=== PATIENT | male | born 1945 | race Caucasian/White ===

== ENCOUNTER → 2020-01-26 13:55 | Outpatient (BNVA) | payer MEDICARE, SELFPAY | PROVIDERS: Family Provider Family Medicine; Visit Provider Nurse Practitioner Family | DX: Z01.818 Encounter for other preprocedural examination (principal) | CPT/HCPCS: 87635 ==

== ENCOUNTER 2021-12-01 09:51 | Outpatient (CLI) | payer MEDICARE, SELFPAY ==
--- NOTE | 2021-12-01 10:33 | USCV_ITS ---
Corwin Rothman Age: 76 Gender: M : 1945 Exam Date: 12/01/2021 11:04 Ordering Phys: Artie Dougherty MD Technologist: Zoltan Sullivan Exam Location: [facility] [place] Indication: Edema/ hypertension BP: 146 / 90 HR: 61 Rhythm: Sinus Technical Quality: Adequate MEASUREMENTS (Male / Female) Normal Values 2D ECHO LV Diastolic Diameter PLAX 5.3 cm 4.2 - 5.9 / 3.9 - 5.3 cm LV Systolic Diameter PLAX 3.3 cm IVS Diastolic Thickness 1.1 cm 0.6 - 1.0 / 0.6 - 0.9 cm IVS Systolic Thickness 1.4 cm LVPW Diastolic Thickness 1.2 cm 0.6 - 1.0 / 0.6 - 0.9 cm LVPW Systolic Thickness 1.6 cm LVOT Diameter 2.0 cm LV Ejection Fraction 2D Teich 66.5 % LV Ejection Fraction MOD 2C 58.4 % LV Ejection Fraction 2C AL 58.5 % LA Diameter 3.5 cm LA Width 3.9 cm LA Height 4.8 cm RA Width 3.4 cm RA Height 4.7 cm Aorta at Sinotubular Diameter 3.3 cm M-MODE Aortic Annulus Diameter 3.3 cm LA Ao Ratio MM 1.1 MV E Point Septal Separation 1.1 cm DOPPLER AV Peak Velocity 130.0 cm/s LVOT Peak Velocity 82.0 cm/s AV Area Cont Eq vti 2.0 cm squared AV Area Cont Eq pk 2.0 cm squared MV Area PHT 3.7 cm squared Mitral E to A Ratio 1.1 MV E' Velocity 34.5 cm/s Mitral E to MV E' Ratio 6.4 Mitral E to LV E' Lateral Ratio 6.1 Mitral E to LV E' Septal Ratio 6.8 TR Peak Velocity 236.5 cm/s TR Peak Gradient 22.4 mmHg TR Mean Velocity 204.0 cm/s TR Mean Gradient 16.8 mmHg TR Velocity Time Integral 73.9 cm Right Atrial Pressure 3.0 mmHg Pulmonary Artery Systolic Pressu 25.4 mmHg RV Acceleration Time 0.1 s RV Ejection Time 0.3 s RV AcT/ET 0.2 FINDINGS Left Ventricle Normal left ventricular size, systolic function and wall thickness, with no diagnostic regional wall motion abnormalities. Left ventricular ejection fraction is estimated at 65 %. Normal diastolic function. Right Ventricle Normal right ventricular size and systolic function. RVSP could not be calculated due to incomplete tricuspid regurgitation velocity profile. Right Atrium Normal right atrial size. Left Atrium Moderately increased left atrial size. Mitral Valve Mildly thickened mitral valve. No mitral valve stenosis. Trace mitral valve regurgitation. Aortic Valve Structurally normal trileaflet aortic valve. No aortic valve stenosis. Golp-vi-pfrpylcs aortic valve regurgitation. Tricuspid Valve Structurally normal tricuspid valve. No tricuspid valve stenosis. Trace tricuspid valve regurgitation. Pulmonic Valve Structurally normal pulmonic valve. No pulmonary valve stenosis. Trace pulmonary valve regurgitation. Pericardium No pericardial effusion. Aorta Normal size aortic root and proximal ascending aorta. CONCLUSIONS 1. Normal left ventricular size, systolic function and wall thickness, with no diagnostic regional wall motion abnormalities. Left ventricular ejection fraction is estimated at 65 %. Normal diastolic function. 2. Normal right ventricular size and systolic function. 3. Igqg-dh-jxvlannr aortic valve regurgitation. 4. Direct comparison to previous study dated 11/14/2018 not possible due to technically difficult study. Gabby Stovall MD (Electronically Signed) Final Date: 06 December 2021 12:48 S
== END 2021-12-01 09:52 | disposition home or self-care (01) ==
PROVIDERS: PCP Family Medicine; Visit Provider Family Medicine
DX: R60.9 Edema, unspecified (principal); I10 Essential (primary) hypertension; I35.1 Nonrheumatic aortic (valve) insufficiency
CPT/HCPCS: 93306

== ENCOUNTER → 2021-12-20 14:05 | Outpatient (BNVA) | payer MEDICARE, SELFPAY | PROVIDERS: PCP Family Medicine; Visit Provider Nurse Practitioner Family | DX: I48.11 Longstanding persistent atrial fibrillation (principal); I10 Essential (primary) hypertension | CPT/HCPCS: 99214 ==

== ENCOUNTER 2022-02-19 12:38 | Emergency (ER) | payer MEDICARE, SELFPAY ==
[2022-02-19 12:53] VITALS: BP 115/72; PULSE 71; RESP 16; TEMP 37; O2SAT 95; BMI 55.6
--- NOTE | 2022-02-19 13:55 | XRR_ITS ---
PROCEDURE INFORMATION: Exam: XR Left Hip Exam date and time: 02/19/2022 2:31 PM Age: 76 years old Clinical indication: Injury or trauma; Fall; Blunt trauma (contusions or hematomas); Left; Hip; Additional info: Fall with left hip pain TECHNIQUE: Imaging protocol: XR Left hip. Views: 2 or 3 views hip with pelvis when performed. COMPARISON: CT abdomen pelvis w con* [id number] 08/30/2019 2:55 PM FINDINGS: Bones/joints: No acute fracture. Soft tissues: Unremarkable. XR/XR hip LT 2-3V wo/w pel* [id number] IMPRESSION: No acute findings.
--- NOTE | 2022-02-19 14:22 | ED_ITS ---
HPI - Fall General: Chief Complaint: Fall Stated Complaint: fell on 02/17/injury to left leg Time Seen by Provider: 02/19/22 14:05 History of Present Illness: Patient is a 76-year-old male comes to the ED with left hip pain. Patient had a fall 2 days ago on February 17. He says he was walking down the steps on his front porch and they were wet sensitive been raining and he slipped. He fell down hitting his left hip and left forearm on the ground. He denies any head trauma or loss of consciousness after fall. He was able to get up on his own. He rates his pain a 7 out of 10 at its on his left hip. He has some bruising on his left hip along with bruising around his left forearm. He is not having any pain to forearm. Associated symptoms-after fall: Denies abdominal pain, chest pain, headache(s), hematuria or neck pain Review of Systems Const: Denies: fever(s), chills or fatigue Eyes: Denies: change in vision or eye discomfort ENMT: Denies: throat pain, odynophagia, nasal discharge or nasal congestion Card: Denies: chest pain, palpitations, edema, swelling of feet/ankles, dyspnea on exertion or orthopnea Resp: Denies: dyspnea, productive cough or non-productive cough GI: Denies: abdominal pain, nausea, vomiting, diarrhea, constipation or hematochezia : Denies: flank pain, difficulty urinating, dysuria or hematuria Musc: Reports: extremity pain (Left hip pain) and extremity swelling (Left hip pain and bruising); Denies: neck pain or back pain Skin/Breast: Denies: rash or new lesions Neuro: Denies: headache(s), numbness in extremities or weakness in extremities PFS ED PFSH: Medical History Atrial fibrillation Essential hypertension History of prostate cancer Hyperlipidemia Obesity Osteoarthritis Surgical History History of hand surgery S/P knee surgery S/P prostatectomy Family History Father Stroke Mother Heart failure Social History Smoking and tobacco status: never smoked Physical Exam Const: COMMON NORMALS: no acute distress, patient oriented x3 and alert GENERAL APPEARANCE: cooperative HENMT: COMMON NORMALS: normocephalic HEAD & SCALP: normocephalic MOUTH: Normal oral and palatal mucosa present THROAT: posterior oropharynx normal and uvula midline Eye: COMMON NORMALS: Equal, round and reactive pupils present and conjunctivae normal CONJUNCTIVA: Yes conjunctivae normal PUPIL: Yes Equal, round and reactive pupils present Neck/C-Spine: COMMON NORMALS: supple GENERAL: Yes normal visual inspection Resp: COMMON NORMALS: normal respiratory effort, No retractions, No use of accessory muscles and clear to auscultation bilaterally AUSCULTATION: clear to auscultation bilaterally Cardio: COMMON NORMALS: regular rate, regular rhythm, S1 normal heart sound present, S2 normal heart sound present, No gallops present (Cardio), No clicks present (Cardio), No murmurs present (Cardio) and Peripheral pulses 2+ throughout RATE: regular rate RHYTHM: regular rhythm HEART SOUNDS: S1 normal heart sound present and S2 normal heart sound present PERIPHERAL PULSES: Peripheral pulses 2+ throughout GI: COMMON NORMALS: Normal to inspection, nondistended, normoactive bowel sounds present, Soft to palpation, non-tender and no masses PALPATION: Yes Soft to palpation : COMMON NORMALS: Yes no CVA tenderness BLADDER/KIDNEY EXAM: Yes no CVA tenderness Back/Pelvis: COMMON NORMALS: no CVA tenderness Extremity: COMMON NORMALS: normal to inspection NARRATIVE EXTREMITY EXAM: Tenderness to palpation over greater trochanteric of left hip. Ecchymosis noted. Neurovascular tact distally. Neuro: COMMON NORMALS: patient oriented x3, CN's II-XII intact bilaterally, moves all extremities, no focal motor deficits and no sensory deficits noted SENSORIUM/ORIENTATION: Yes alert Skin: GENERAL SKIN EXAM: dry skin Course Vital Signs: Vital signs: Vital Signs Temperature 98.6 F 02/19/22 12:53 Pulse Rate 68 02/19/22 15:39 Respiratory Rate 18 02/19/22 15:39 Blood Pressure 135/84 02/19/22 15:39 Pulse Oximetry 92 02/19/22 15:39 MDM - Fall Medical Decision Making Patient is a 76-year-old male comes to the ED with left hip pain after fall. Patient slipped on the last step on his front porch 2 days ago and fell landing on left hip and left forearm area. Denies any head trauma, loss of consciousness, headache or any neurodeficits. He has mild pain in his left hip and is ambulatory. Vitals are stable. Patient does have a contusion and swelling of his left forearm and left hip with some tenderness to palpation over lateral aspect of the left hip. Neurovascular tact distally. X-ray of left forearm and of left hip showed no acute fractures or findings. Patient diagnosed with a contusion of left hip and left forearm. He was told to follow- up with his PCP in the next week for reevaluation. Return to ED precautions given. Patient understood and agreed with plan. Lab Data Radiology Impressions Hip/Pelvis X-Ray 02/19/22 13:55 IMPRESSION: No acute findings. Forearm X-Ray 02/19/22 14:25 IMPRESSION: No acute findings. Discharge Plan Discharge Patient Disposition: Home Clinical Impression: Fall as cause of accidental injury at home as place of occurrence Qualifiers: Encounter type: initial encounter Qualified Code(s): W19.XXXA - Unspecified fall, initial encounter Contusion of left hip Qualifiers: Encounter type: initial encounter Qualified Code(s): S70.02XA - Contusion of left hip, initial encounter Contusion of forearm, left Qualifiers: Encounter type: initial encounter Qualified Code(s): S50.12XA - Contusion of left forearm, initial encounter Condition: Stable Prescriptions: No Action metoprolol tartrate 50 mg tablet 25 mg PO BID 0RF aspirin 325 mg tablet 325 mg PO DAILY 0RF amiodarone 200 mg tablet 200 mg PO DAILY 0RF atorvastatin 20 mg tablet 20 mg PO DAILY 0RF digestive enzymes Capsule 1 cap PO DAILY 0RF Rx Instructions: administer with food; swallow whole; do not crush/chew/dissolve/break/cut calcium carbonate [Antacid Ultra Strength] 400 mg calcium (1,000 mg) tablet,chewable 1,000 mg PO DAILY 0RF glucosamine sulfate 2KCl [Glucosamine Relief] 1,000 mg tablet 1,000 mg PO BID 0RF Rx Instructions: administer with meals melatonin 10 mg capsule 10 mg PO DAILY 0RF Lactobacillus acidophilus 2 billion cell tablet 4,000 mmu cells PO DAILY 0RF All Day Allergy (cetirizine) 10 mg capsule PO PRN0RF pantoprazole 40 mg tablet,delayed release (DR/EC) 40 mg PO DAILY PRN0RF acetaminophen 500 mg capsule 500 mg PO Q6H PRN0RF furosemide 40 mg tablet 40 mg PO 0RF potassium chloride 10 mEq tablet extended release 10 meq PO 0RF Discharge Orders: Discharge ED (Routine); Ordered 02/19/22 Ordered By: Edward Pulliam Referrals: Artie Dougherty MD [Primary Care Provider] - Discharge Diet: Regular Discharge Activity: Increase activity as tolerated Patient Instructions: Contusion in Adults (ED) Activity Restrictions/Additional Instructions: Follow-up with medical provider as directed in the next 7 to 10 days for reevaluation. Continue taking home medications as previously prescribed. Return to the ER or your medical provider if condition worsens. Please read and understand discharge instructions. Thank you for choosing [facility] for your healthcare needs today. Bishop kenyon realize this is an emergency room and that we are providing you with a medical screening exam and this may not be complete and all inclusive of all the testing and or work up that you may need to determine your ailment or severity of your illness. It is very important that you follow up as instructed or that you return to the Emergency Department should you have concerns or if your condition changes or worsens in any way. Coding Level of Care Code ED Consumer Marketing Manager for Jack Latif
--- NOTE | 2022-02-19 14:25 | XRR_ITS ---
PROCEDURE INFORMATION: Exam: XR Left Forearm Exam date and time: 02/19/2022 2:31 PM Age: 76 years old Clinical indication: Injury or trauma; Fall; Blunt trauma (contusions or hematomas); Arm, lower; Left; Additional info: Fall injury-bruising around forearm TECHNIQUE: Imaging protocol: XR Left forearm. Views: 2 views. COMPARISON: No relevant prior studies available. FINDINGS: Bones/joints: Osseous structures are intact. Negative for fracture. Soft tissues: Normal. XR/XR forearm LT 2V [id number] IMPRESSION: No acute findings.
[2022-02-19 15:39] VITALS: BP 135/84; PULSE 68; RESP 18; O2SAT 92
== END 2022-02-19 15:42 | disposition home or self-care (01) ==
PROVIDERS: Emergency Provider Physician Assistant; PCP Family Medicine
DX: S70.02XA Contusion of left hip, initial encounter (principal); S50.12XA Contusion of left forearm, initial encounter; W10.8XXA Fall (on) (from) other stairs and steps, initial encounter
CPT/HCPCS: 73090; 73502; 99283

== ENCOUNTER → 2022-05-17 14:11 | Outpatient (BNVA) | payer MEDICARE, SELFPAY | PROVIDERS: PCP Family Medicine; Visit Provider Internal Medicine Cardiovascular Disease | DX: I48.11 Longstanding persistent atrial fibrillation (principal); I10 Essential (primary) hypertension; E78.5 Hyperlipidemia, unspecified; M19.90 Unspecified osteoarthritis, unspecified site; E66.9 Obesity, unspecified; Z68.41 Body mass index [BMI] 40.0-44.9, adult | CPT/HCPCS: 99214 ==

== ENCOUNTER 2022-07-23 08:57 | Emergency (ER) | payer MEDICARE, SELFPAY ==
[2022-07-23 09:21] VITALS: BP 145/74; PULSE 67; RESP 16; TEMP 36.8; O2SAT 96; BMI 44.1
--- NOTE | 2022-07-23 09:35 | XRR_ITS ---
PROCEDURE INFORMATION: Exam: XR Chest Exam date and time: 07/23/2022 9:50 AM Age: 77 years old Clinical indication: Cough with hemorrhage; Additional info: Hemoptysis TECHNIQUE: Imaging protocol: Radiologic exam of the chest. Views: 2 views. PA and Lateral COMPARISON: CR XR chest 2V* [id number] 11/13/2018 9:59 AM FINDINGS: Lungs: There are small lung volumes with minimal accentuation of the pulmonary vascularity. There are no confluent interstitial or airspace opacities. Pleural spaces: There are no pleural effusions or pneumothorax. Heart/Mediastinum: There is zqez-gz-szmddcoc enlargement of the cardiac silhouette on the exam.. The mediastinal contour is normal. The trachea is in the midline. Bones/joints: No acute abnormalities. Small right hemidiaphragmatic eventration is seen. XR/XR chest 2V* [id number] IMPRESSION: 1. Small lung volumes with minimal accentuation of the pulmonary vascularity. No confluent infiltrates in the lungs. 2. Ywab-zc-vagbhete enlargement of the cardiac silhouette.
--- NOTE | 2022-07-23 09:37 | ECG_ITS ---
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 Measurements Intervals [place] Rate: 63 P: 239 NE: 162 QRS: -48 QRSD: 114 T: 43 QT: 437 QTc: 449 Interpretive Statements ECTOPIC ATRIAL RHYTHM LEFT ANTERIOR FASCICULAR BLOCK [QRS AXIS <= -45, QR IN I, RS IN II] PROBABLE LATERAL MYOCARDIAL INFARCTION , PROBABLY OLD [35 ms Q WAVE IN I/aVL/V5/V6] INTERPRETATION BASED ON A DEFAULT AGE OF 40 YEARS Compared to ECG 11/14/2018 11:28:20 Ectopic atrial rhythm now present Left anterior fascicular block now present Myocardial infarct finding now present Atrial flutter no longer present ST (T wave) deviation no longer present Electronically Signed On 07-24-2022 10:13:22 CDT by Luciano Murry M.D. [email or web address]
--- NOTE | 2022-07-23 09:38 | ED_ITS ---
HPI - General Adult General: Chief complaint: General Medical Stated complaint: Spitting up blood Time Seen by Provider: 07/23/22 09:27 History of Present Illness: 77-year-old male presents with couple episodes of of spitting up blood. He said this, bloody sputum. He denies any shortness of breath, recent illness, nausea, vomiting, abdominal pain, chest pain. Patient reports that he has had a couple episodes since around 230 this morning. Patient with no other systemic complaints. Associated symptoms: Deny chest pain, dyspnea, headache(s), nausea, rash, palpitations or vomiting Review of Systems Const: Denies: fever(s), chills or body aches Eyes: Denies: change in vision or blurry vision Card: Denies: chest pain or palpitations Resp: Reports: hemoptysis; Denies: dyspnea or productive cough GI: Denies: abdominal pain, nausea or vomiting : Denies: flank pain, difficulty urinating or dysuria Musc: Reports: neck pain; Denies: extremity pain or extremity swelling Skin/Breast: Reports: pruritus; Denies: rash or erythema Neuro: Reports: dizziness; Denies: headache(s) Psych: Denies: anxiety or depression PFSH ED PFSH: Medical History (Updated 07/06/22 @ 11:24 by Artie Dougherty MD) Atrial fibrillation Essential hypertension History of prostate cancer Hyperlipidemia Obesity Osteoarthritis Osteoarthritis of left knee Surgical History History of hand surgery S/P knee surgery S/P prostatectomy Family History Father Stroke Mother Heart failure Social History Smoking and tobacco status: never smoked Physical Exam Const: COMMON NORMALS: no acute distress, patient oriented x3, no limitations and alert Chest: COMMONS NORMALS: normal inspection of the chest Resp: COMMON NORMALS: normal respiratory effort, No retractions, No use of accessory muscles and clear to auscultation bilaterally AUSCULTATION: clear to auscultation bilaterally Cardio: COMMON NORMALS: regular rate and regular rhythm RATE: regular rate RHYTHM: regular rhythm GI: COMMON NORMALS: Normal to inspection, nondistended, normoactive bowel sounds present, Soft to palpation and non-tender PALPATION: Yes Soft to palpation Extremity: COMMON NORMALS: normal to inspection, full ROM and capillary refill normal Neuro: COMMON NORMALS: patient oriented x3, CN's II-XII intact bilaterally, moves all extremities, no focal motor deficits and no sensory deficits noted SENSORIUM/ORIENTATION: Yes alert Psych: COMMON NORMALS: mental status grossly normal, cooperative, normal affect and speech normal SPEECH: Yes normal speech Skin: COMMON NORMALS: no rashes or lesions noted GENERAL SKIN EXAM: no rashes or lesions noted Course Vital Signs: Vital signs: Vital Signs Temperature 98.2 F 07/23/22 09:21 Pulse Rate 67 07/23/22 09:21 Respiratory Rate 16 07/23/22 09:21 Blood Pressure 145/74 07/23/22 09:21 Pulse Oximetry 96 07/23/22 09:21 Oxygen Delivery Me thod 07/23/22 09:21 MDM - General Adult Medical Decision Making Patient with no significant acute findings on x-ray, labs or physical exam. Patient had some sputum in the ER that was clear with no blood tinge or gross blood. Patient stable. I recommend he follow-up with his regular doctor on outpatient basis for further evaluation. Patient's discharged home. Lab Data : 07/23/22 09:50 07/23/22 09:50 Radiology Impressions Chest X-Ray 07/23/22 09:35 IMPRESSION: 1. Small lung volumes with minimal accentuation of the pulmonary vascularity. No confluent infiltrates in the lungs. 2. Hfjk-ku-slbwasxh enlargement of the cardiac silhouette. Laboratory Results WBC 5.0 10^3/uL (4.0-10.0) 07/23/22 09:50 RBC 4.88 10^6/uL (4.1-5.3) 07/23/22 09:50 Hgb 15.2 g/dL (11.7-16.6) 07/23/22 09:50 Hct 47.7 % (42.0-52.0) 07/23/22 09:50 MCV 97.7 fl (80-94) H 07/23/22 09:50 MCH 31.1 pg (28.0-34.0) 07/23/22 09:50 MCHC 31.9 g/dL (30.0-36.0) 07/23/22 09:50 RDW 13.2 % (12.1-15.1) 07/23/22 09:50 Plt Count 192 10^3/cmm (130-400) 07/23/22 09:50 MPV 9.5 fL (7.4-10.4) 07/23/22 09:50 Neut % (Auto) 73.3 % 07/23/22 09:50 Lymph % (Auto) 15.7 % 07/23/22 09:50 [place] % (Auto) 7.0 % 07/23/22 09:50 Eos % (Auto) 2.8 % 07/23/22 09:50 Baso % (Auto) 0.6 % 07/23/22 09:50 Neut # (Auto) 3.64 10^3/uL (1.8-7.7) 07/23/22 09:50 Lymph # (Auto) 0.8 10^3/uL (0.8-4.8) 07/23/22 09:50 [place] # (Auto) 0.4 10^3/uL (0.2-0.9) 07/23/22 09:50 Eos # (Auto) 0.1 10^3/uL (0.0-0.8) 07/23/22 09:50 Baso # (Auto) 0.0 10^3/uL (0.0-0.1) 07/23/22 09:50 Nucleated RBC % (auto) 0 % 07/23/22 09:50 Nucleated RBCs # 0.0 /100WBC 07/23/22 09:50 PT 13.50 SECONDS (12.1-14.9) 07/23/22 09:50 INR 1.00 (0.8-1.2) 07/23/22 09:50 APTT 32.7 SECONDS (23.9-36.7) 07/23/22 09:50 Sodium 135 mmol/L (136-145) L 07/23/22 09:50 Potassium 4.4 mmol/L (3.5-5.1) 07/23/22 09:50 Chloride 97 mmol/L (98-107) L 07/23/22 09:50 Carbon Dioxide 32 mmol/L (22-29) H 07/23/22 09:50 Anion Gap 10.4 (5-19) 07/23/22 09:50 BUN 21 mg/dL (8-23) 07/23/22 09:50 Creatinine 1.3 mg/dL (0.7-1.2) H 07/23/22 09:50 GFR Calculation Not Reportable 07/23/22 09:50 Glucose 106 mg/dL (65-115) 07/23/22 09:50 Calculated Osmolality 283 mOsm/kg (285-295) L 07/23/22 09:50 Calcium 9.5 mg/dL (8.5-10.5) 07/23/22 09:50 Magnesium 2.4 mg/dL (1.7-2.3) H 07/23/22 09:50 Total Bilirubin 0.5 mg/dL (0.15-1.2) 07/23/22 09:50 AST 14 U/L (0-40) 07/23/22 09:50 ALT 13 U/L (0-41) 07/23/22 09:50 Alkaline Phosphatase 103 U/L (40-130) 07/23/22 09:50 Total Protein 7.6 g/dL (6.6-8.7) 07/23/22 09:50 Albumin 4.1 g/dL (3.5-5.2) 07/23/22 09:50 Globulin 3.5 g/dL (1.3-4.6) 07/23/22 09:50 Lipase 21 U/L (13-60) 07/23/22 09:50 Discharge Plan Discharge Condition: Stable Prescriptions: No Action metoprolol tartrate 50 mg tablet 25 mg PO BID amiodarone 200 mg tablet 200 mg PO DAILY atorvastatin 20 mg tablet 20 mg PO DAILY digestive enzymes Capsule 1 cap PO DAILY Rx Instructions: administer with food; swallow whole; do not crush/chew/dissolve/break/cut calcium carbonate [Antacid Ultra Strength] 400 mg calcium (1,000 mg) tablet,chewable 1,000 mg PO DAILY glucosamine sulfate 2KCl [Glucosamine Relief] 1,000 mg tablet 1,000 mg PO BID Rx Instructions: administer with meals melatonin 10 mg capsule 10 mg PO DAILY Lactobacillus acidophilus 2 billion cell tablet 4,000 mmu cells PO DAILY All Day Allergy (cetirizine) 10 mg capsule PO PRN pantoprazole 40 mg tablet,delayed release (DR/EC) 40 mg PO DAILY PRN acetaminophen 500 mg capsule 500 mg PO Q6H PRN furosemide 40 mg tablet 40 mg PO potassium chloride 10 mEq tablet extended release 10 meq PO Eliquis 5 mg tablet 5 mg PO BID methylprednisolone acetate [Depo-Medrol] 80 mg/mL suspension 80 mg intra-articular ONCE Qty: 1 0RF lidocaine (PF) 20 mg/mL (2 %) solution 20 mg intra-articular ONCE Qty: 3 0RF Referrals: Artie Dougherty MD [Primary Care Provider] - Coding Level of Care Code ED Elevator Dispatcher for Chg Fwd Exam Comprehensive
[2022-07-23 09:58] LABS: Basophils % 0.6 %; Eosinophils # 0.1 10^3/uL (0.0-0.8); Eosinophils % 2.8 %; Hematocrit 47.7 % (42.0-52.0); Hemoglobin 15.2 g/dL (11.7-16.6); Lymphocytes # 0.8 10^3/uL (0.8-4.8); Lymphocytes % 15.7 %; Mean Corpuscular HGB Conc 31.9 g/dL (30.0-36.0); Mean Corpuscular Hemoglobin 31.1 pg (28.0-34.0); Mean Corpuscular Volume 97.7 fl (80-94); Mean Platelet Volume 9.5 fL (7.4-10.4); Monocytes # 0.4 10^3/uL (0.2-0.9); Neutrophils # 3.64 10^3/uL (1.8-7.7); Neutrophils % 73.3 %; Nucleated Red Blood Cells % 0 %; Platelet Count 192 10^3/cmm (130-400); Red Blood Count 4.88 10^6/uL (4.1-5.3); Red Cell Distribution Width 13.2 % (12.1-15.1)
[2022-07-23 10:12] LABS: Partial Thromboplastin Time 32.7 SECONDS (23.9-36.7)
[2022-07-23 10:15] LABS: Alanine Aminotransferase 13 U/L (0-41); Albumin Level 4.1 g/dL (3.5-5.2); Alkaline Phosphatase 103 U/L (40-130); Anion Gap 10.4 (5-19); Aspartate Amino Transferase 14 U/L (0-40); Blood Urea Nitrogen 21 mg/dL (8-23); Calcium 9.5 mg/dL (8.5-10.5); Carbon Dioxide 32 mmol/L (22-29); Chloride 97 mmol/L (98-107); Globulin 3.5 g/dL (1.3-4.6); Glucose 106 mg/dL (65-115); Lipase 21 U/L (13-60); Magnesium 2.4 mg/dL (1.7-2.3); Osmolality Calculated 283 mOsm/kg (285-295); Potassium 4.4 mmol/L (3.5-5.1); Sodium 135 mmol/L (136-145); Total Bilirubin 0.5 mg/dL (0.15-1.2); Total Protein 7.6 g/dL (6.6-8.7)
[2022-07-23] MEDS: sodium chloride 0.9% 500 ML IV (10:37)
[2022-07-23] MEDS: pantoprazole 40 mg SDV IVP (10:37)
--- NOTE | 2022-07-23 10:40 | PC.NURSE ---
pt placed on continuous spo2, nibp, and cm.
[2022-07-23 11:38] VITALS: BP 154/75; PULSE 57; RESP 16; O2SAT 95
== END 2022-07-23 11:40 | disposition home or self-care (01) ==
PROVIDERS: Emergency Provider Student in an Organized Health Care Education/Training Program; PCP Family Medicine
DX: R04.2 Hemoptysis (principal); Z79.01 Long term (current) use of anticoagulants; I10 Essential (primary) hypertension; Z85.46 Personal history of malignant neoplasm of prostate; E78.5 Hyperlipidemia, unspecified
CPT/HCPCS: 71046; 80053; 83690; 83735; 85025; 85610; 85730; 93005; 96374; 99285; C9113; J7040

== ENCOUNTER → 2023-01-16 16:41 | Outpatient (BNVA) | payer MEDICARE, SELFPAY | PROVIDERS: PCP Family Medicine; Visit Provider Family Medicine | DX: E78.5 Hyperlipidemia, unspecified (principal); I10 Essential (primary) hypertension; I48.91 Unspecified atrial fibrillation | CPT/HCPCS: 80053; 80061; 85025 ==

== ENCOUNTER → 2023-05-16 14:00 | Outpatient (BNVA) | payer MEDICARE, SELFPAY | PROVIDERS: PCP Family Medicine; Visit Provider Internal Medicine Cardiovascular Disease | DX: I48.11 Longstanding persistent atrial fibrillation (principal); I10 Essential (primary) hypertension; E78.5 Hyperlipidemia, unspecified; M19.90 Unspecified osteoarthritis, unspecified site; E66.9 Obesity, unspecified; Z68.41 Body mass index [BMI] 40.0-44.9, adult; Z79.01 Long term (current) use of anticoagulants | CPT/HCPCS: 99214 ==

== ENCOUNTER → 2024-02-08 12:27 | Outpatient (BNVA) | payer MEDICARE, SELFPAY | PROVIDERS: PCP Family Medicine; Visit Provider Family Medicine | DX: I10 Essential (primary) hypertension (principal); I48.11 Longstanding persistent atrial fibrillation; E78.5 Hyperlipidemia, unspecified; R26.81 Unsteadiness on feet | CPT/HCPCS: 80053; 80061; 85025 ==

== ENCOUNTER 2024-03-06 06:00 | Outpatient (RCR) | payer MEDICARE, SELFPAY | END 2024-03-24 23:59 | disposition home or self-care (01) | LOC: GPT 06:00 | PROVIDERS: Visit Provider Family Medicine | DX: R26.81 Unsteadiness on feet (principal) | CPT/HCPCS: 97110; 97112; 97161; 97530 ==

== ENCOUNTER 2024-03-25 06:00 | Outpatient (RCR) | payer MEDICARE, SELFPAY | END 2024-04-24 23:59 | disposition home or self-care (01) | LOC: GPT 06:00 | PROVIDERS: Visit Provider Family Medicine | DX: R26.81 Unsteadiness on feet (principal) | CPT/HCPCS: 97110 ==

== ENCOUNTER 2024-04-25 06:00 | Outpatient (RCR) | payer MEDICARE, SELFPAY | END 2024-05-25 23:59 | disposition home or self-care (01) | LOC: GPT 06:00 | PROVIDERS: Visit Provider Family Medicine | DX: R26.81 Unsteadiness on feet (principal) | CPT/HCPCS: 97110; 97112 ==

== ENCOUNTER 2024-05-26 06:00 | Outpatient (RCR) | payer MEDICARE, SELFPAY | END 2024-06-24 23:59 | disposition home or self-care (01) | LOC: GPT 06:00 | PROVIDERS: PCP Family Medicine; Visit Provider Family Medicine | DX: R26.81 Unsteadiness on feet (principal) | CPT/HCPCS: 97110; 97112; 97164; 97530 ==

== ENCOUNTER 2024-06-25 06:00 | Outpatient (RCR) | payer MEDICARE, SELFPAY | END 2024-07-25 23:59 | disposition home or self-care (01) | LOC: GPT 06:00 | PROVIDERS: PCP Family Medicine; Visit Provider Family Medicine | DX: R26.81 Unsteadiness on feet (principal) | CPT/HCPCS: 97110; 97112; 97164; 97530; 97535 ==

== ENCOUNTER → 2025-03-18 09:08 | Outpatient (BNVA) | payer MEDICARE, SELFPAY | PROVIDERS: PCP Family Medicine; Visit Provider Family Medicine | DX: I10 Essential (primary) hypertension (principal); I48.11 Longstanding persistent atrial fibrillation; E78.5 Hyperlipidemia, unspecified | CPT/HCPCS: 80053; 80061; 85025 ==

== ENCOUNTER 2025-04-03 10:24 | Outpatient (CLI) | payer MEDICARE, SELFPAY ==
--- NOTE | 2025-04-03 10:30 | USR_ITS ---
PROCEDURE INFORMATION: Exam: US Bilateral Noninvasive Physiologic Study of the Lower Extremity Arteries, Limited Exam date and time: 04/03/2025 10:21 AM Age: 80 years old Clinical indication: Pain; Leg, lower; Bilateral; Additional info: Claudication TECHNIQUE: Imaging protocol: Bilateral Limited bilateral noninvasive physiologic studies of lower extremity arteries. No images. Exam is limited. COMPARISON: CT abdomen pelvis w con* [id number] 08/30/2019 2:55 PM FINDINGS: Right femoral arteries: Not evaluated Right infrapopliteal arteries: Posterior tibial artery pressure 139 mmHg. Dorsalis pedis artery pressure 125 mmHg. Digital pressure 136 mmHg. Left femoral arteries: Not evaluated Left infrapopliteal arteries: Posterior tibial artery pressure 128 mmHg. Dorsalis pedis artery pressure 129 mmHg. Digital pressure 126 mmHg. Right Ankle-Brachial Index: 1.0 Left Ankle-Brachial Index: 1.0 US/CV ankle brachial index [id number] IMPRESSION: No evidence of stenosis or occlusion in the lower extremities.
== END 2025-04-03 10:25 | disposition home or self-care (01) ==
PROVIDERS: PCP Family Medicine; Visit Provider Family Medicine
DX: I73.9 Peripheral vascular disease, unspecified (principal)
CPT/HCPCS: 93922